=== PATIENT | female | born 1985 | race Caucasian/White ===

== ENCOUNTER 2017-02-14 07:44 | Emergency (ER) | payer SELFPAY ==
[2017-02-14 07:52] VITALS: BP 133/82; PULSE 74; TEMP 98.4; BMI 29.2
[2017-02-14] MEDS ORDERED: ERYTHROMYCIN 0.5% OPHTHALMIC OINTMENT 3.5 GM TUBE ONE (08:29)
[2017-02-14] MEDS ORDERED: DEXAMETHASONE SOD PHOSPHATE 10 MG/1 ML VIAL IM ONE ×2 (08:36→08:38)
[2017-02-14] MEDS ORDERED: DEXAMETHASONE 4 MG TABLET (FP) PO STA (08:37)
[2017-02-14] MEDS ORDERED: DEXAMETHASONE SOD PHOSPHATE 10 MG/1 ML VIAL ONE (08:38)
--- NOTE | 2017-02-14 08:38 | PDOC ---
History of Present Illness - General Chief Complaint: Eye Problem Stated Complaint: EYE SWELLING Time Seen by Provider: 02/14/17 08:14 History Source: Patient Exam Limitations: No Limitations - History of Present Illness Initial Comments: 02/14/17 08:32 here for evaluation of swellign and itching to upper rtight eyelid. States woke up with this and has clear liquid/tearing. No visual changes, no fevers, no ear or throat pain. Uncertain to cause , is not know if she has insects at home, no one else at home has any bites, 02/14/17 08:38 Timing/Duration: unsure, 24 hours Severity: mild, moderate Associated Symptoms: reports: denies symptoms. denies: headaches Past History - Travel Traveled outside of the country in the last 30 days: No Close contact w/someone who was outside of country & ill: No - Past Medical History Allergies/Adverse Reactions: Allergies Allergy/AdvReac Type Severity Reaction Status Date / Time No Known Allergies Allergy Verified 02/14/17 07:46 Home Medications: Ambulatory Orders NK [No Known Home Medication] 02/14/17 Other medical history: DENIES. - Surgical History Abdominal Surgery: Yes - Psycho/Social/Smoking Cessation Hx Anxiety: No Suicidal Ideation: No Smoking History: Never smoked Have you smoked in the past 12 months: No Hx Alcohol Use: No Drug/Substance Use Hx: No Substance Use Type: None Review of Systems - Review of Systems Able to Perform ROS?: Yes Is the patient limited Thai proficient: Yes Constitutional: Yes: See HPI. No: Symptoms Reported, Chills, Fever, Malaise HEENTM: Yes: Symptoms Reported, See HPI, Eye Pain, Tearing (and swelling to right upper lid, no point tenderness, no abscess or swelling in particular spot. ). No: Blurred Vision Respiratory: No: Symptoms reported Cardiac (ROS): No: Symptoms Reported All Other Systems: Reviewed and Negative *Physical Exam - Vital Signs Last Vital Signs Temp Pulse Resp BP Pulse Ox 98.4 F 74 18 133/82 99 02/14/17 07:47 02/14/17 07:47 02/14/17 07:47 02/14/17 07:47 02/14/17 07:47 - Physical Exam General Appearance: Yes: Nourished, Appropriately Dressed, Apparent Distress, Mild Distress HEENT: positive: CECILIA (visual acuity WNL), Normal ENT Inspection, TMs Normal, Pharynx Normal, Other (swelling to upper right lid with no pointing lesion/ , is puritic, no visual changes. ) Neck: positive: Supple. negative: Lymphadenopathy (R), Lymphadenopathy (L) Respiratory/Chest: positive: Lungs Clear, Normal Breath Sounds Cardiovascular: positive: Regular Rhythm Musculoskeletal: positive: Normal Inspection Extremity: positive: Normal Capillary Refill, Normal Inspection, Normal Range of Motion Integumentary: positive: Normal Color, Dry, Warm Neurologic: positive: contracts analyst II-XII NML intact, Fully Oriented, Alert, Normal Mood/ Affect, Normal Response, Motor Strength 02/06 Medical Decision Making - Medical Decision Making 02/14/17 08:43 Stye versus ALLERGIC conjunctivitis, given 1 dose of Decadron for swelling and itching, erythromycin for soothing treatment and instructed to hot soak eyelid. Follow-up with PMD on Thursday if not improved 02/14/17 08:45 *DC/Admit/Observation/Transfer Diagnosis at time of Disposition: Hordeolum externum (stye) Qualifiers: Laterality: right Eyelid: upper Qualified Code(s): H00.011 - Hordeolum externum right upper eyelid - Discharge Dispostion Disposition: HOME Condition at time of disposition: Stable Admit: No - Patient Instructions Printed Discharge Instructions: DI for Blepharitis Additional Instructions: Rest, avoid rubbing eyes Wash hands frequently as this is very contagious Wash hands, use eye drops as directed, wash hands after use Do not share eye ointment with other person to may become infected as this will infect them Avoid contact with others until redness and discharge is gone from eyes. Followup with ophthalmology or private physician as needed - Post Discharge Activity Work/School Note: Back to Work
--- NOTE | 2017-02-14 08:54 | PDOC ---
History of Present Illness - General Chief Complaint: Eye Problem Stated Complaint: EYE SWELLING Time Seen by Provider: 02/14/17 08:14 Past History - Past Medical History Allergies/Adverse Reactions: Allergies Allergy/AdvReac Type Severity Reaction Status Date / Time No Known Allergies Allergy Verified 02/14/17 07:46 Other medical history: DENIES. - Surgical History Abdominal Surgery: Yes - Psycho/Social/Smoking Cessation Hx Anxiety: No Suicidal Ideation: No Smoking History: Never smoked Have you smoked in the past 12 months: No Hx Alcohol Use: No Drug/Substance Use Hx: No Substance Use Type: None *Physical Exam - Vital Signs Last Vital Signs Temp Pulse Resp BP Pulse Ox 98.4 F 74 18 133/82 99 02/14/17 07:47 02/14/17 07:47 02/14/17 07:47 02/14/17 07:47 02/14/17 07:47
== END 2017-02-14 08:50 | disposition home or self-care (01) ==
LOC: JERFT 07:44 → JER 07:44 → JERFT 08:50
PROC: 3E0233Z Introduction of Anti-inflammatory into Muscle, Percutaneous Approach (ICD-10-PCS; principal; 2017-02-14)
DX: H00.011 Hordeolum externum right upper eyelid (principal)
CPT/HCPCS: 99281-25

== ENCOUNTER 2020-06-05 23:34 | Emergency (ER) | payer OTHER ==
[2020-06-06 00:40] VITALS: BMI 32.5
--- NOTE | 2020-06-06 01:03 | PDOC ---
*Physical Exam - Vital Signs Last Vital Signs Temp Pulse Resp BP Pulse Ox 98.9 F 65 18 113/69 100 06/05/20 23:45 06/05/20 23:45 06/05/20 23:45 06/05/20 23:45 06/05/20 23:45 ED Treatment Course - LABORATORY CBC & Chemistry Diagram: 06/06/20 03:00 06/06/20 03:00 Medical Decision Making - Medical Decision Making 06/06/20 01:03 Patient seen by the advanced practice provider under my supervision. Ancillary testing reviewed as necessary. I agree with plan as outlined by the advanced practice provider. Discharge - Discharge Information Problems reviewed: Yes Clinical Impression/Diagnosis: Abdominal pain Qualifiers: Abdominal location: upper abdomen, unspecified Qualified Code(s): R10.10 - Upper abdominal pain, unspecified Cholelithiasis Qualifiers: Cholelithiasis location: gallbladder Cholecystitis presence: without cholecystitis Biliary obstruction: with biliary obstruction Qualified Code(s): K80.21 - Calculus of gallbladder without cholecystitis with obstruction Pancreatitis Qualifiers: Chronicity: acute Pancreatitis type: biliary Acute pancreatitis complication: unspecified Qualified Code(s): K85.10 - Biliary acute pancreatitis without necrosis or infection Condition: Fair Disposition: TRANSFER ACUTE CARE/OTHER HOSP - Follow up/Referral - Patient Discharge Instructions - Post Discharge Activity
[2020-06-06] MEDS ORDERED: MAG HYDROX/AL HYDROX/SIMETH 30 ML UNIT-DOSE CUP PO ONE (01:35)
[2020-06-06] MEDS ORDERED: FAMOTIDINE 20 MG TABLET PO ONE (01:35)
--- NOTE | 2020-06-06 01:35 | PDOC ---
History of Present Illness - General Chief Complaint: Pain, Acute Stated Complaint: ABD PAIN Time Seen by Provider: 06/06/20 00:57 History Source: Patient - History of Present Illness Initial Comments: 06/06/20 04:30 34-year-old female complaining of upper abdominal pain for the last 1 week. Patient also reports nausea denies vomiting. Patient reports that previously she was told that she needed to be admitted to the hospital at that time did not have any abdominal surgeries. Denies fever/chills, chest pain, dizziness 06/06/20 04:31 Past History - Medical History Allergies/Adverse Reactions: Allergies Allergy/AdvReac Type Severity Reaction Status Date / Time No Known Allergies Allergy Verified 06/06/20 00:35 Home Medications: Ambulatory Orders NK [No Known Home Medication] 02/14/17 - Surgical History Abdominal Surgery: Yes - Reproductive History Is Patient Now?: No - Psycho-Social/Smoking History Smoking History: Never smoked Have you smoked in the past 12 months: No Information on smoking cessation initiated: No - Substance Abuse Hx (Audit-C & DAST Scrn) How often the patient has a drink containing alcohol: Never Score: In Men: 4 or > Positive; In Women: 3 or > Positive: 0 Screen Result (Pos requires Nsg. Audit-10AR): Negative In the last yr the pt used illegal drug/Rx for NonMed reason: No Score: Yes response is considered Positive: 0 Screen Result (Positive result requires Nsg. DAST-10): Negative Review of Systems - Review of Systems Able to Perform ROS?: Yes Is the patient limited Swedish proficient: No Constitutional: No: Symptoms Reported, See HPI, Chills, Diaphoresis, Fever, Loss of Appetite, Malaise, Night Sweats, Weakness, Weight Stable, Unintentional Wgt. Loss, Unexplained wgt Loss, Other ABD/GI: Yes: Nausea, Abdominal cramping. No: Symptoms Reported, See HPI, Abdomi nal Distended, Abd. Pain w/ defecation, Blood Streaked Bowels, Constipated, Diarrhea, Difficulty Swallowing, Poor Appetite, Poor Fluid Intake, Rectal Bleeding, Vomiting, Indigestion, Tarry Stools, Other *Physical Exam - Vital Signs Last Vital Signs Temp Pulse Resp BP Pulse Ox 98.9 F 65 18 113/69 100 06/05/20 23:45 06/05/20 23:45 06/05/20 23:45 06/05/20 23:45 06/05/20 23:45 - Physical Exam General Appearance: Yes: Appropriately Dressed Gastrointestinal/Abdominal: positive: Normal Bowel Sounds, Other (significant tenderness to upper abdomen l> R) Musculoskeletal: positive: Normal Inspection. negative: CVA Tenderness Integumentary: positive: Normal Color, Dry, Warm Neurologic: positive: Fully Oriented, Alert, Normal Mood/Affect ED Treatment Course - LABORATORY CBC & Chemistry Diagram: 06/06/20 03:00 06/06/20 03:00 ED Progress Note - Progress Note Progress Note: A: acute pancreatitis P: cbc cmp lipase Abd US pain control 06/06/20 04:34 Abdominal US: Gallstones without secondary findings of cholecystitis. CBD is mildly dilated measures 8 mm in diameter. Gallbladder is distended and contains multiple stones without secondary findings of cholecystitis 06/06/20 05:21 Medical Decision Making - Medical Decision Making 06/06/20 04:12 Dr. Ramsey Somers. no surgery information management specialist today. will likely need to transfer to acute care facility for surgical consult. 06/06/20 04:31 Dr. Micheline somers. pending call back,. 06/06/20 04:52 no Gi call back received. no surgery information management specialist for the ER. patient to be transferred to [facility] for surgery and GI consults. patient accepted for transfer to the ER . patient to be transferred to the care of Dr. Amaya. 06/06/20 05:20 Discharge - Discharge Information Problems reviewed: Yes Clinical Impression/Diagnosis: Abdominal pain Qualifiers: Abdominal location: upper abdomen, unspecified Qualified Code(s): R10.10 - Upper abdominal pain, unspecified Cholelithiasis Qualifiers: Cholelithiasis location: gallbladder Cholecystitis presence: without cholecystitis Biliary obstruction: with biliary obstruction Qualified Code(s): K80.21 - Calculus of gallbladder without cholecystitis with obstruction Pancreatitis Qualifiers: Chronicity: acute Pancreatitis type: biliary Acute pancreatitis complication: unspecified Qualified Code(s): K85.10 - Biliary acute pancreatitis without necrosis or infection Condition: Fair Disposition: TRANSFER ACUTE CARE/OTHER HOSP - Follow up/Referral - Patient Discharge Instructions - Post Discharge Activity
[2020-06-06] MEDS ORDERED: ONDANSETRON *ODT* 4 MG TABLET SL ONE (01:36)
[2020-06-06] MEDS ORDERED: FAMOTIDINE 20 MG/50 ML IVPB 20 MG/50 ML MG IVPB ONE ×2 (01:49→03:14)
[2020-06-06] MEDS ORDERED: SODIUM CHLORIDE 1,000 ML IV STA (01:49)
[2020-06-06] MEDS ORDERED: ONDANSETRON 4 MG/2 ML VIAL IVPUSH ONE (01:49)
[2020-06-06] MEDS ORDERED: HYDROmorphone HCL CARPU-JECT 2 MG/1 ML DISP.SYRIN IVPB ONE (03:04)
[2020-06-06] MEDS ORDERED: HYDROmorphone HCl 2 MG/ML VIAL ONE (03:13)
[2020-06-06 03:23] LABS: HEMATOCRIT 29.1 % (32.4-45.2); HEMOGLOBIN 8.9 GM/dL (10.7-15.3); MEAN PLT VOLUME 8.9 fl (7.5-11.1)
[2020-06-06 03:24] LABS: PH,URINE 5.5 (5.0-8.0); URINE APPEARANCE CLOUDY; URINE BILIRUBIN 3+ (NEGATIVE); URINE COLOR DK YELLOW; URINE GLUCOSE (UA) NEGATIVE (NEGATIVE); URINE KETONE 2+ (NEGATIVE); URINE LEUK ESTERASE NEGATIVE (NEGATIVE); URINE NITRITE NEGATIVE (NEGATIVE); URINE PROTEIN TRACE (NEGATIVE)
[2020-06-06 03:26] LABS: HCG,QUALITATIVE URINE Negative
[2020-06-06 03:28] LABS: MCHC 30.8 g/dl (32.0-36.0); MEAN CELL VOLUME 59.4 fl (80-96); PLATELET COUNT 349 K/MM3 (134-434); RBC 4.89 M/mm3 (3.60-5.2); RDW 20.6 % (11.6-15.6); WHITE BLOOD COUNT 9.7 K/mm3 (4.0-10.0)
[2020-06-06 03:43] LABS: ALBUMIN 4.1 g/dl (3.4-5.0); BILIRUBIN,TOTAL 3.6 mg/dL (0.2-1); BLOOD UREA NITROGEN 6.9 mg/dL (7-18); CALCIUM 9.4 mg/dL (8.5-10.1); CREATININE 0.6 mg/dL (0.55-1.3); POTASSIUM 3.7 mmol/L (3.5-5.1); TOT PROT 8.3 g/dl (6.4-8.2)
[2020-06-06 03:45] LABS: MCH 18.3 pg (25.7-33.7)
[2020-06-06] MEDS ORDERED: METOCLOPRAMIDE HCL INJECTION 10 MG/2 ML VIAL IVPB ONE (04:11)
[2020-06-06] MEDS ORDERED: METOCLOPRAMIDE HCL INJECTION 10 MG/2 ML VIAL ONE (04:14)
[2020-06-06] MEDS ORDERED: SODIUM CHLORIDE 1,000 ML IV SCH (04:15)
[2020-06-06 05:38] VITALS: BP 114/69; PULSE 82; TEMP 97.9
[2020-06-06 06:38] LABS: ANISOCYTOSIS 2+; MACROCYTOSIS 0; PLATELET ESTIMATE NORMAL; TARGET CELLS 1+; TEAR DROP CELLS 1+
== END 2020-06-06 06:10 | disposition short-term general hospital (02) ==
LOC: JER 23:34
PROC: 3E033NZ Introduction of Analgesics, Hypnotics, Sedatives into Peripheral Vein, Percutaneous Approach (ICD-10-PCS; principal; 2020-06-06)
PROC: 3E033GC Introduction of Other Therapeutic Substance into Peripheral Vein, Percutaneous Approach (ICD-10-PCS; 2020-06-06)
PROC: 3E0337Z Introduction of Electrolytic and Water Balance Substance into Peripheral Vein, Percutaneous Approach (ICD-10-PCS; 2020-06-06)
DX: R10.10 Upper abdominal pain, unspecified (principal); K80.21 Calculus of gallbladder without cholecystitis with obstruction; K85.10 Biliary acute pancreatitis without necrosis or infection
CPT/HCPCS: 36415; 76705-TC; 80053; 81003; 83690; 84703; 85025; 99285-25